=== PATIENT | female | born 1975 | race Caucasian/White ===

== ENCOUNTER 2016-05-08 15:06 | Emergency (ER) | payer MEDICAID ==
[~2016-05-08] VITALS: Ht 162.6 cm; Wt 107.0 kg
[~2016-05-08 15:06] MED LIST: ACET-2080 PO; IBUP-1547 PO
[2016-05-08] MEDS ORDERED: HYDROCODONE/ACETAMINOPHEN 10-325 MG TABLET PO ONE (16:15)
[2016-05-08] MEDS ORDERED: KETOROLAC TROMETHAMINE 60 MG/2 ML VIAL IM ONE (16:15)
[2016-05-08 17:01] LABS: APPEARANCE,URINE CLOUDY (CLEAR); GLUCOSE, URINE (UA) NEGATIVE (NEGATIVE); KETONES,URINE TRACE mg/dL (NEGATIVE); LEUKOCYTE ESTERASE ,URINE MODERATE (NEGATIVE); OCCULT BLOOD,URINE NEGATIVE (NEGATIVE); PROTEIN,URINE NEGATIVE (NEGATIVE)
[2016-05-08 17:04] LABS: ADD UA MICROSCOPIC YES
[2016-05-08] MEDS ORDERED: LIDOCAINE HCL/PF 1% 2 ML VIAL IM ONE (17:30)
[2016-05-08] MEDS ORDERED: CefTRIAXone SODIUM 1 GM/VIAL IM ONE (17:30)
[2016-05-08 17:50] LABS: RBC,URINE None Seen /HPF (0-2); SQUAMOUS EPITHELIAL CELL,UR Many /LPF (None Seen)
[2016-05-08 18:25] VITALS: BP 111/63
== END 2016-05-08 18:38 | disposition home or self-care (01) ==
LOC: EMS 15:08
DX: S33.5XXA Sprain of ligaments of lumbar spine, initial encounter (principal); N39.0 Urinary tract infection, site not specified; E66.01 Morbid (severe) obesity due to excess calories; Z68.41 Body mass index [BMI] 40.0-44.9, adult; X58.XXXA Exposure to other specified factors, initial encounter; Y93.89 Activity, other specified; Y92.89 Other specified places as the place of occurrence of the external cause; Y99.8 Other external cause status
CPT/HCPCS: 81001; 87086; 96372; 99284; J0696; J1885; J3490

== ENCOUNTER 2016-07-03 12:48 | Emergency (ER) | payer MEDICAID ==
[~2016-07-03] VITALS: Ht 157.5 cm; Wt 122.5 kg
[2016-07-03] MEDS ORDERED: ACET-66 PO (13:07)
[2016-07-03 18:44] VITALS: BP 132/75
[2016-07-03] MEDS ORDERED: IBUPROFEN 800 MG TABLET PO ONE (18:45)
== END 2016-07-03 18:52 | disposition home or self-care (01) ==
LOC: EMS 12:49
DX: R51 Headache (principal); E66.01 Morbid (severe) obesity due to excess calories; Z68.42 Body mass index [BMI] 45.0-49.9, adult; D64.9 Anemia, unspecified
CPT/HCPCS: 70450; 81025; 99284

== ENCOUNTER 2017-01-19 14:13 | Emergency (ER) | payer SELFPAY ==
[~2017-01-19] VITALS: Ht 162.6 cm; Wt 122.7 kg
[~2017-01-19 14:13] MED LIST changes: -ACET-2080 PO; +ACET-66 PO; -IBUP-1547 PO; +IBUP-2071 PO
[2017-01-19 15:06] VITALS: BP 126/74
== END 2017-01-19 16:00 | disposition home or self-care (01) ==
LOC: EMS 14:15
DX: N89.8 Other specified noninflammatory disorders of vagina (principal)
CPT/HCPCS: 99283

== ENCOUNTER 2017-05-03 09:36 | Emergency (ER) | payer SELFPAY ==
[~2017-05-03] VITALS: Ht 157.5 cm; Wt 118.2 kg
[2017-05-03 10:18] VITALS: BP 131/77
== END 2017-05-03 11:24 | disposition home or self-care (01) ==
LOC: EMS 09:40
DX: J40 Bronchitis, not specified as acute or chronic (principal); R03.0 Elevated blood-pressure reading, without diagnosis of hypertension; D64.9 Anemia, unspecified
CPT/HCPCS: 71046; 99284

== ENCOUNTER 2017-05-04 08:08 | Emergency (ER) | payer SELFPAY ==
[~2017-05-04] VITALS: Ht 165.1 cm; Wt 118.2 kg
[2017-05-04 08:15] VITALS: BP 150/97
[2017-05-04] MEDS ORDERED: GuaiFENesin/D-METHORPHAN [SUGAR-FREE] 200-20MG/10 ML SYRUP UDCUP PO ONE (09:30)
== END 2017-05-04 09:55 | disposition home or self-care (01) ==
LOC: EMS 08:10
DX: J40 Bronchitis, not specified as acute or chronic (principal); R03.0 Elevated blood-pressure reading, without diagnosis of hypertension
CPT/HCPCS: 99283

== ENCOUNTER 2017-08-10 08:51 | Emergency (ER) | payer SELFPAY ==
[~2017-08-10] VITALS: Ht 162.6 cm; Wt 90.9 kg
[2017-08-10] MEDS ORDERED: METHOCARBAMOL 500 MG TABLET PO ONE (11:30)
[2017-08-10] MEDS ORDERED: KETOROLAC TROMETHAMINE 60 MG/2 ML VIAL IM ONE (11:30)
[2017-08-10 12:29] VITALS: BP 138/84
== END 2017-08-10 12:36 | disposition home or self-care (01) ==
LOC: EMS 08:53
DX: S16.1XXA Strain of muscle, fascia and tendon at neck level, initial encounter (principal); S39.012A Strain of muscle, fascia and tendon of lower back, initial encounter; R03.0 Elevated blood-pressure reading, without diagnosis of hypertension; M79.641 Pain in right hand; V49.40XA Driver injured in collision with unspecified motor vehicles in traffic accident, initial encounter; Y93.89 Activity, other specified; Y92.89 Other specified places as the place of occurrence of the external cause; Y99.8 Other external cause status
CPT/HCPCS: 96372; 99283; J1885

== ENCOUNTER 2017-12-06 09:20 | Emergency (ER) | payer MEDICAID ==
[~2017-12-06] VITALS: Ht 157.5 cm; Wt 118.2 kg
[2017-12-06] MEDS ORDERED: KETOROLAC TROMETHAMINE 30 MG/ML VIAL IM ONE (11:30)
[2017-12-06 13:16] LABS: BASOPHILS % (AUTO) 0.6 % (0.0-2.0); EOSINOPHILS % (AUTO) 2.8 % (1.0-6.0); HEMATOCRIT 35.2 % (36-46); HEMOGLOBIN 11.5 g/dL (12.0-16.0); LYMPHOCYTES # (AUTO) 2.1 K/uL (1.0-4.8); LYMPHOCYTES % (AUTO) 22.6 % (22.0-44.0); MEAN CORPUSCULAR HEMOGLOBIN 24.7 pg (26.0-34.0); MEAN CORPUSCULAR HGB CONC 32.7 G/dL (31.0-37.0); MEAN CORPUSCULAR VOLUME 75 fL (80-100); MONOCYTES # (AUTO) 0.6 K/uL (0.1-1.0); MONOCYTES % (AUTO) 5.8 % (2.0-9.0); NEUTROPHILS # (AUTO) 6.4 K/uL (1.8-7.7); NEUTROPHILS % (AUTO) 68.2 % (40.0-70.0); PLATELET COUNT (AUTO) 300 K/uL (150-450); RED BLOOD CELL COUNT(AUTO) 4.66 MIL/uL (4.00-5.20); RED CELL DISTRIBUTION WIDTH 17.1 % (11.5-14.5)
[2017-12-06 13:31] LABS: ANION GAP 8 mmol/L (8-16); CALCIUM, TOTAL 8.8 mg/dL (8.8-10.5); CARBON DIOXIDE 27 mmol/L (22-29); CHLORIDE 104 mmol/L (98-107); CREATININE 0.58 mg/dL (0.60-1.30); GLOMERULAR FILTR. RATE CALC > 60 mL/min (>60); GLUCOSE,RANDOM 93 mg/dL (70-110); POTASSIUM 3.9 mmol/L (3.5-5.1); SODIUM SERUM 139 mmol/L (136-145); UREA NITROGEN, BLOOD 10 mg/dL (7-18)
[2017-12-06 13:44] LABS: ALANINE AMINOTRANSFERASE 17 U/L (12-78); ALBUMIN 3.3 g/dL (3.4-5.0); ALKALINE PHOSPHATASE 69 U/L (46-116); ASPARTATE AMINOTRANSFERASE 16 U/L (15-37); BILIRUBIN,TOTAL 0.3 mg/dL (0.1-1.0); TOTAL PROTEIN, SERUM 7.4 g/dL (6.4-8.2)
[2017-12-06 15:03] VITALS: BP 128/81
== END 2017-12-06 15:05 | disposition home or self-care (01) ==
LOC: EMS 09:22
DX: M25.512 Pain in left shoulder (principal); R07.89 Other chest pain; E66.01 Morbid (severe) obesity due to excess calories
CPT/HCPCS: 36415; 71045; 80053; 84484; 85025; 93005; 96372; 99285; J1885

== ENCOUNTER 2018-03-28 11:43 | Emergency (ER) | payer MEDICAID ==
[~2018-03-28] VITALS: Ht 165.1 cm; Wt 109.1 kg
[2018-03-28] MEDS ORDERED: DICYCLOMINE HCL 20 MG TABLET PO ONE (14:00)
[2018-03-28 14:27] LABS: BASOPHILS % (AUTO) 0.7 % (0.0-2.0); EOSINOPHILS % (AUTO) 3.9 % (1.0-6.0); HEMATOCRIT 35.1 % (36-46); HEMOGLOBIN 11.4 g/dL (12.0-16.0); LYMPHOCYTES # (AUTO) 1.9 K/uL (1.0-4.8); LYMPHOCYTES % (AUTO) 19.6 % (22.0-44.0); MEAN CORPUSCULAR HEMOGLOBIN 24.6 pg (26.0-34.0); MEAN CORPUSCULAR HGB CONC 32.6 G/dL (31.0-37.0); MEAN CORPUSCULAR VOLUME 75 fL (80-100); MONOCYTES # (AUTO) 0.5 K/uL (0.1-1.0); MONOCYTES % (AUTO) 5.5 % (2.0-9.0); NEUTROPHILS % (AUTO) 70.3 % (40.0-70.0); PLATELET COUNT (AUTO) 296 K/uL (150-450); RED BLOOD CELL COUNT(AUTO) 4.65 MIL/uL (4.00-5.20); RED CELL DISTRIBUTION WIDTH 15.8 % (11.5-14.5)
[2018-03-28 14:38] LABS: ANION GAP 9 mmol/L (8-16); CALCIUM, TOTAL 8.6 mg/dL (8.8-10.5); CARBON DIOXIDE 26 mmol/L (22-29); CHLORIDE 104 mmol/L (98-107); CREATININE 0.53 mg/dL (0.60-1.30); GLOMERULAR FILTR. RATE CALC > 60 mL/min (>60); GLUCOSE,RANDOM 114 mg/dL (70-110); POTASSIUM 3.8 mmol/L (3.5-5.1); SODIUM SERUM 139 mmol/L (136-145); UREA NITROGEN, BLOOD 13 mg/dL (7-18)
[2018-03-28 14:42] LABS: ALANINE AMINOTRANSFERASE 18 U/L (12-78); ALBUMIN 3.3 g/dL (3.4-5.0); ALKALINE PHOSPHATASE 72 U/L (46-116); ASPARTATE AMINOTRANSFERASE 17 U/L (15-37); BILIRUBIN,TOTAL 0.2 mg/dL (0.1-1.0); LIPASE 228 U/L (73-393); TOTAL PROTEIN, SERUM 7.6 g/dL (6.4-8.2)
[2018-03-28] MEDS ORDERED: KETOROLAC TROMETHAMINE 10 MG TABLET PO ONE (14:45)
[2018-03-28 15:35] LABS: HCG,QUANTITATIVE < 1 mIU/mL (0-6)
[2018-03-28 16:34] VITALS: BP 147/81
== END 2018-03-28 17:06 | disposition home or self-care (01) ==
LOC: EMS 11:45
DX: K80.20 Calculus of gallbladder without cholecystitis without obstruction (principal); D25.9 Leiomyoma of uterus, unspecified
CPT/HCPCS: 74176

== ENCOUNTER 2018-12-07 09:28 | Emergency (ER) | payer MEDICAID ==
[~2018-12-07] VITALS: Ht 160 cm; Wt 118.2 kg
[2018-12-07 10:21] LABS: BASOPHILS % (AUTO) 0.6 % (0.0-2.0); EOSINOPHILS % (AUTO) 3.8 % (1.0-6.0); HEMATOCRIT 39.8 % (36-46); HEMOGLOBIN 12.6 g/dL (12.0-16.0); LYMPHOCYTES # (AUTO) 2.1 K/uL (1.0-4.8); LYMPHOCYTES % (AUTO) 21.6 % (22.0-44.0); MEAN CORPUSCULAR HEMOGLOBIN 24.9 pg (26.0-34.0); MEAN CORPUSCULAR HGB CONC 31.8 G/dL (31.0-37.0); MEAN CORPUSCULAR VOLUME 79 fL (80-100); MONOCYTES # (AUTO) 0.5 K/uL (0.1-1.0); MONOCYTES % (AUTO) 5.2 % (2.0-9.0); NEUTROPHILS # (AUTO) 6.8 K/uL (1.8-7.7); NEUTROPHILS % (AUTO) 68.8 % (40.0-70.0); PLATELET COUNT (AUTO) 299 K/uL (150-450); RED BLOOD CELL COUNT(AUTO) 5.06 MIL/uL (4.00-5.20); RED CELL DISTRIBUTION WIDTH 16.3 % (11.5-14.5)
[2018-12-07 10:35] LABS: B-TYPE NATRIURETIC PEPTIDE 12 pg/mL (0-100); D-DIMER 0.7 mg/L FEU (0.00-0.50); PROTHROMBIN TIME 10.2 SEC (9.4-11.6)
[2018-12-07 10:41] LABS: ANION GAP 11 mmol/L (8-16); CALCIUM, TOTAL 9.2 mg/dL (8.8-10.5); CARBON DIOXIDE 22 mmol/L (22-29); CHLORIDE 103 mmol/L (98-107); CREATININE 0.65 mg/dL (0.60-1.30); GLOMERULAR FILTR. RATE CALC > 60 mL/min (>60); GLUCOSE,RANDOM 110 mg/dL (70-110); POTASSIUM 3.9 mmol/L (3.5-5.1); SODIUM SERUM 136 mmol/L (136-145); UREA NITROGEN, BLOOD 10 mg/dL (7-18)
[2018-12-07 10:52] LABS: ALANINE AMINOTRANSFERASE 13 U/L (12-78); ALBUMIN 3.7 g/dL (3.4-5.0); ALKALINE PHOSPHATASE 79 U/L (46-116); ASPARTATE AMINOTRANSFERASE 12 U/L (15-37); BILIRUBIN,TOTAL 0.3 mg/dL (0.1-1.0); CREATINE KINASE, TOTAL ONLY 71 U/L (26-192); HCG,QUANTITATIVE < 1 mIU/mL (0-6); TOTAL PROTEIN, SERUM 8.4 g/dL (6.4-8.2)
[2018-12-07 10:59] LABS: LIPASE 368 U/L (73-393)
[2018-12-07] MEDS ORDERED: IOVERSOL 350 MG/ML 100 ML VIAL ONE (11:39)
[2018-12-07] MEDS ORDERED: SODIUM CHLORIDE 0.9% 100 ML ONE (11:39)
[2018-12-07 11:58] LABS: BILIRUBIN,URINE NEGATIVE (NEGATIVE); GLUCOSE, URINE (UA) NEGATIVE (NEGATIVE); KETONES,URINE NEGATIVE (NEGATIVE); LEUKOCYTE ESTERASE ,URINE MODERATE (NEGATIVE); NITRATE,URINE NEGATIVE (NEGATIVE); PROTEIN,URINE POS 1+ (NEGATIVE)
[2018-12-07 12:24] LABS: APPEARANCE,URINE HAZY (CLEAR); OCCULT BLOOD,URINE MODERATE (NEGATIVE)
[2018-12-07 12:34] LABS: BACTERIA,URINE Few /HPF (None Seen); SQUAMOUS EPITHELIAL CELL,UR Moderate /LPF (None Seen)
[2018-12-07 13:03] VITALS: BP 138/85
== END 2018-12-07 13:06 | disposition home or self-care (01) ==
LOC: EMS 09:28 → EDUNIT# 09:28 → EMS 13:06
DX: R07.89 Other chest pain (principal); K80.20 Calculus of gallbladder without cholecystitis without obstruction; K76.0 Fatty (change of) liver, not elsewhere classified; R16.1 Splenomegaly, not elsewhere classified; E66.01 Morbid (severe) obesity due to excess calories; G89.29 Other chronic pain; Z68.42 Body mass index [BMI] 45.0-49.9, adult
CPT/HCPCS: 36415; 71045; 71275; 80053; 81001; 82550; 83690; 83880; 84484; 84702; 85025; 85379; 85610; 85730; 87086; 93005; 99285; J7050; Q9967

== ENCOUNTER 2019-01-27 09:56 | Inpatient (IN) | payer MEDICAID ==
[~2019-01-27] VITALS: Ht 167.6 cm; Wt 133.6 kg
[2019-01-27] MEDS ORDERED: HYDR-4061 PO (10:05)
[2019-01-27] MEDS ORDERED: RANI150T7 PO (10:05)
[2019-01-27] MEDS ORDERED: OMEP20 PO (10:05)
[2019-01-27 10:43] LABS: APPEARANCE,URINE CLOUDY (CLEAR); BILIRUBIN,URINE NEGATIVE (NEGATIVE); GLUCOSE, URINE (UA) NEGATIVE (NEGATIVE); KETONES,URINE NEGATIVE (NEGATIVE); LEUKOCYTE ESTERASE ,URINE SMALL (NEGATIVE); NITRATE,URINE NEGATIVE (NEGATIVE); OCCULT BLOOD,URINE NEGATIVE (NEGATIVE); PROTEIN,URINE NEGATIVE (NEGATIVE); UROBILINOGEN,URINE 0.2 mg/dL (<=1.0)
[2019-01-27 10:47] LABS: BACTERIA,URINE Moderate /HPF (None Seen); SQUAMOUS EPITHELIAL CELL,UR Many /LPF (None Seen); WBC,URINE None Seen /HPF (0-5)
[2019-01-27] MEDS ORDERED: FAMOTIDINE 10 MG/ML 2 ML VIAL IVP ONE (11:15)
[2019-01-27] MEDS ORDERED: PB/HYOSCY/ATR/SCOP/LIDO/MAALOX 55 ML BOTTLE PO ONE (11:15)
[2019-01-27 11:17] LABS: BASOPHILS % (AUTO) 0.7 % (0.0-2.0); EOSINOPHILS % (AUTO) 3.1 % (1.0-6.0); HEMATOCRIT 31.1 % (36-46); LYMPHOCYTES # (AUTO) 1.6 K/uL (1.0-4.8); LYMPHOCYTES % (AUTO) 18.2 % (22.0-44.0); MEAN CORPUSCULAR HEMOGLOBIN 23.6 pg (26.0-34.0); MEAN CORPUSCULAR VOLUME 74 fL (80-100); MONOCYTES # (AUTO) 0.5 K/uL (0.1-1.0); MONOCYTES % (AUTO) 5.4 % (2.0-9.0); NEUTROPHILS # (AUTO) 6.3 K/uL (1.8-7.7); NEUTROPHILS % (AUTO) 72.6 % (40.0-70.0); PLATELET COUNT (AUTO) 289 K/uL (150-450); RED BLOOD CELL COUNT(AUTO) 4.22 MIL/uL (4.00-5.20); RED CELL DISTRIBUTION WIDTH 15.2 % (11.5-14.5)
[2019-01-27 11:26] LABS: ANION GAP 10 mmol/L (8-16); CALCIUM, TOTAL 8.6 mg/dL (8.8-10.5); CARBON DIOXIDE 25 mmol/L (22-29); CHLORIDE 104 mmol/L (98-107); CREATININE 0.59 mg/dL (0.60-1.30); GLOMERULAR FILTR. RATE CALC > 60 mL/min (>60); GLUCOSE,RANDOM 103 mg/dL (70-110); POTASSIUM 3.7 mmol/L (3.5-5.1); SODIUM SERUM 139 mmol/L (136-145); UREA NITROGEN, BLOOD 7 mg/dL (7-18)
[2019-01-27 11:38] LABS: ALANINE AMINOTRANSFERASE 13 U/L (12-78); ALBUMIN 3.2 g/dL (3.4-5.0); ALKALINE PHOSPHATASE 82 U/L (46-116); ASPARTATE AMINOTRANSFERASE 12 U/L (15-37); BILIRUBIN,TOTAL 0.3 mg/dL (0.1-1.0); HCG,QUANTITATIVE < 1 mIU/mL (0-6); LIPASE 115 U/L (73-393); TOTAL PROTEIN, SERUM 7.8 g/dL (6.4-8.2)
[2019-01-27] MEDS ORDERED: IOVERSOL 350 MG/ML 150 ML VIAL ONE (13:22)
[2019-01-27] MEDS ORDERED: KETOROLAC TROMETHAMINE 30 MG/ML VIAL IVP ONE (15:15)
[2019-01-27] MEDS ORDERED: SODIUM CHLORIDE 0.9% 100 ML ONE (18:50)
[2019-01-27] MEDS ORDERED: IOVERSOL 320 MG/ML 100 ML VIAL ONE (18:50)
[2019-01-27] MEDS ORDERED: IODIXANOL 320 MG/ML 100 ML VIAL ONE (19:07)
[2019-01-27] MEDS ORDERED: HEPARIN SODIUM 25000 UNITS/D5W 250 ML IV PRN (20:39)
[2019-01-27] MEDS ORDERED: HEPARIN SODIUM,PORCINE 5,000 UNITS/ML VIAL IVP ONE ×2 (20:45→21:00)
[2019-01-27] MEDS ORDERED: HEPARIN SODIUM,PORCINE 5,000 UNITS/ML VIAL IVP PRN ×2 (20:45)
[2019-01-27] MEDS ORDERED: ACETAMINOPHEN 325 MG TABLET PO PRN (21:15)
[2019-01-27] MEDS ORDERED: MAGNESIUM HYDROXIDE SUSPENSION 30 ML UDCUP PO PRN (21:15)
[2019-01-27 21:22] LABS: PROTHROMBIN TIME 10.5 SEC (9.4-11.6)
[2019-01-27 23:11] VITALS: BP 123/89
[2019-01-28 03:11] LABS: BASOPHILS % (AUTO) 0.9 % (0.0-2.0); EOSINOPHILS % (AUTO) 3.1 % (1.0-6.0); HEMATOCRIT 28.1 % (36-46); HEMOGLOBIN 9.2 g/dL (12.0-16.0); LYMPHOCYTES # (AUTO) 2.2 K/uL (1.0-4.8); LYMPHOCYTES % (AUTO) 29.3 % (22.0-44.0); MEAN CORPUSCULAR HGB CONC 32.8 G/dL (31.0-37.0); MEAN CORPUSCULAR VOLUME 73 fL (80-100); MONOCYTES # (AUTO) 0.6 K/uL (0.1-1.0); MONOCYTES % (AUTO) 7.5 % (2.0-9.0); NEUTROPHILS # (AUTO) 4.5 K/uL (1.8-7.7); NEUTROPHILS % (AUTO) 59.2 % (40.0-70.0); PLATELET COUNT (AUTO) 248 K/uL (150-450); RED BLOOD CELL COUNT(AUTO) 3.84 MIL/uL (4.00-5.20); RED CELL DISTRIBUTION WIDTH 15.1 % (11.5-14.5)
[2019-01-28 04:20] VITALS: BP 115/43
[2019-01-28] MEDS: MORPHINE SULFATE 2 MG/ML SYRINGE IVP PRN ×2 (08:39→16:51)
[2019-01-28 08:40] VITALS: BP 104/68
[2019-01-28] MEDS: DOCUSATE SODIUM 100 MG CAPSULE PO SCH ×2 (08:42→21:28)
[2019-01-28] MEDS: FAMOTIDINE 20 MG TABLET PO SCH (08:42)
[2019-01-28] MEDS: APIXABAN 5 MG TABLET PO SCH ×2 (10:15→21:28)
[2019-01-28 11:48] VITALS: BP 126/63
[2019-01-28 16:00] VITALS: BP 128/74
[2019-01-28 19:56] VITALS: BP 126/72
[2019-01-28 23:55] VITALS: BP 121/60
[2019-01-29 05:26] VITALS: BP 132/74
[2019-01-29 06:36] LABS: BASOPHILS % (AUTO) 0.8 % (0.0-2.0); EOSINOPHILS % (AUTO) 3.8 % (1.0-6.0); HEMATOCRIT 31.6 % (36-46); LYMPHOCYTES # (AUTO) 1.5 K/uL (1.0-4.8); LYMPHOCYTES % (AUTO) 21.9 % (22.0-44.0); MEAN CORPUSCULAR HEMOGLOBIN 23.5 pg (26.0-34.0); MEAN CORPUSCULAR HGB CONC 31.6 G/dL (31.0-37.0); MEAN CORPUSCULAR VOLUME 74 fL (80-100); MONOCYTES # (AUTO) 0.5 K/uL (0.1-1.0); MONOCYTES % (AUTO) 6.7 % (2.0-9.0); NEUTROPHILS # (AUTO) 4.6 K/uL (1.8-7.7); NEUTROPHILS % (AUTO) 66.8 % (40.0-70.0); PLATELET COUNT (AUTO) 288 K/uL (150-450); RED BLOOD CELL COUNT(AUTO) 4.26 MIL/uL (4.00-5.20); RED CELL DISTRIBUTION WIDTH 15.5 % (11.5-14.5)
[2019-01-29 06:47] LABS: ANION GAP 9 mmol/L (8-16); CALCIUM, TOTAL 8.6 mg/dL (8.8-10.5); CARBON DIOXIDE 25 mmol/L (22-29); CHLORIDE 104 mmol/L (98-107); CREATININE 0.65 mg/dL (0.60-1.30); GLOMERULAR FILTR. RATE CALC > 60 mL/min (>60); GLUCOSE,RANDOM 131 mg/dL (70-110); SODIUM SERUM 138 mmol/L (136-145); UREA NITROGEN, BLOOD 9 mg/dL (7-18)
[2019-01-29 08:02] VITALS: BP 141/75
[2019-01-29] MEDS: DOCUSATE SODIUM 100 MG CAPSULE PO SCH (08:07)
[2019-01-29] MEDS: FAMOTIDINE 20 MG TABLET PO SCH (08:07)
[2019-01-29] MEDS: APIXABAN 5 MG TABLET PO SCH (08:08)
[2019-01-29 12:07] VITALS: BP 128/76
[2019-01-29] MEDS ORDERED: APIX5TAB PO (12:40)
== END 2019-01-29 14:00 | disposition home or self-care (01) | DRG 468 ==
LOC: EMS 09:57 → 5N 21:02
PROVIDERS: ADMIT Internal Medicine; ATTEND Internal Medicine
DX: I82.3 Embolism and thrombosis of renal vein (principal); E66.01 Morbid (severe) obesity due to excess calories; N80.9 Endometriosis, unspecified; Z82.49 Family history of ischemic heart disease and other diseases of the circulatory system; Z87.440 Personal history of urinary (tract) infections; Z83.3 Family history of diabetes mellitus; Z68.42 Body mass index [BMI] 45.0-49.9, adult
CPT/HCPCS: 74177; 87086; J1644; J1885; J2270; J3490; J7050; Q9967

== ENCOUNTER 2019-04-28 20:16 | Emergency (ER) | payer MEDICAID ==
[~2019-04-28 20:16] MED LIST changes: -ACET-66 PO; +APIX5TAB PO; -IBUP-2071 PO; +OMEP20 PO
== END 2019-04-28 20:29 | disposition left against medical advice (07) ==
LOC: EMS 20:19
DX: R07.89 Other chest pain (principal); Z53.21 Procedure and treatment not carried out due to patient leaving prior to being seen by health care provider

== ENCOUNTER 2019-10-02 06:33 | Emergency (ER) | payer MEDICAID ==
[~2019-10-02] VITALS: Ht 157.5 cm; Wt 122.7 kg
[2019-10-02 06:34] VITALS: BP 146/90
== END 2019-10-02 06:55 | disposition home or self-care (01) ==
LOC: EMS 06:33
DX: J34.89 Other specified disorders of nose and nasal sinuses (principal)
CPT/HCPCS: Z7502

== ENCOUNTER 2020-06-29 06:25 | Emergency (ER) | payer MEDICAID ==
[~2020-06-29] VITALS: Ht 162.6 cm; Wt 125.0 kg
[~2020-06-29 06:25] MED LIST changes: -APIX5TAB PO
[2020-06-29 06:32] VITALS: BP 139/101
== END 2020-06-29 07:05 | disposition home or self-care (01) ==
LOC: EMS 06:28
DX: R09.82 Postnasal drip (principal)
CPT/HCPCS: 99282; Z7502

== ENCOUNTER 2021-11-11 08:59 | Emergency (ER) | payer MEDICAID ==
[~2021-11-11] VITALS: Ht 167.6 cm; Wt 120.0 kg
[2021-11-11 11:05] VITALS: BP 129/68
== END 2021-11-11 11:11 | disposition home or self-care (01) ==
LOC: EMS 08:59
DX: R13.10 Dysphagia, unspecified (principal); E66.01 Morbid (severe) obesity due to excess calories; Z87.19 Personal history of other diseases of the digestive system
CPT/HCPCS: 70360; 99283

== ENCOUNTER 2022-01-08 11:22 | Emergency (ER) | payer MEDICAID ==
[~2022-01-08] VITALS: Ht 162.6 cm; Wt 127.3 kg
[2022-01-08] MEDS ORDERED: BENZ-70 PO (12:41)
[2022-01-08] MEDS ORDERED: GUAI-487 PO (12:41)
[2022-01-08] MEDS ORDERED: PROM118S5 PO ×2 (12:41→16:49)
[2022-01-08 12:59] VITALS: BP 138/85
[2022-01-08] MEDS ORDERED: GUAIF600 PO (16:49)
== END 2022-01-08 13:00 | disposition home or self-care (01) ==
LOC: EMS 11:22
DX: J20.9 Acute bronchitis, unspecified (principal); E66.01 Morbid (severe) obesity due to excess calories; G89.29 Other chronic pain; Z87.738 Personal history of other specified (corrected) congenital malformations of digestive system
CPT/HCPCS: 99283; Z7502

== ENCOUNTER 2022-05-14 10:36 | Emergency (ER) | payer MEDICAID ==
[~2022-05-14] VITALS: Ht 160 cm; Wt 118.2 kg
[~2022-05-14 10:36] MED LIST changes: +GUAIF600 PO; +PROM118S5 PO
[2022-05-14 12:18] LABS: BASOPHILS % (AUTO) 0.7 % (0.0-2.0); EOSINOPHILS % (AUTO) 2.3 % (1.0-6.0); HEMATOCRIT 40.3 % (36-46); HEMOGLOBIN 13.4 g/dL (12.0-16.0); LYMPHOCYTES # (AUTO) 1.8 K/uL (1.0-4.8); LYMPHOCYTES % (AUTO) 19.5 % (22.0-44.0); MEAN CORPUSCULAR HEMOGLOBIN 27.9 pg (26.0-34.0); MEAN CORPUSCULAR HGB CONC 33.3 G/dL (31.0-37.0); MEAN CORPUSCULAR VOLUME 84 fL (80-100); MONOCYTES # (AUTO) 0.5 K/uL (0.1-1.0); NEUTROPHILS # (AUTO) 6.6 K/uL (1.8-7.7); NEUTROPHILS % (AUTO) 72.5 % (40.0-70.0); PLATELET COUNT (AUTO) 243 K/uL (150-450); RED BLOOD CELL COUNT(AUTO) 4.82 MIL/uL (4.00-5.20); RED CELL DISTRIBUTION WIDTH 14.1 % (11.5-14.5)
[2022-05-14 12:25] LABS: ANION GAP 8 mmol/L (8-16); CALCIUM, TOTAL 8.7 mg/dL (8.8-10.5); CARBON DIOXIDE 28 mmol/L (22-29); CHLORIDE 104 mmol/L (98-107); CREATININE 0.57 mg/dL (0.60-1.30); GLOMERULAR FILTR. RATE CALC > 60 mL/min (>60); GLUCOSE,RANDOM 107 mg/dL (70-110); POTASSIUM 4.5 mmol/L (3.5-5.1); SODIUM SERUM 140 mmol/L (136-145); UREA NITROGEN, BLOOD 9 mg/dL (7-18)
[2022-05-14 12:26] LABS: APPEARANCE,URINE CLEAR (CLEAR); BILIRUBIN,URINE NEGATIVE (NEGATIVE); GLUCOSE, URINE (UA) NEGATIVE (NEGATIVE); KETONES,URINE NEGATIVE (NEGATIVE); LEUKOCYTE ESTERASE ,URINE TRACE (NEGATIVE); NITRATE,URINE NEGATIVE (NEGATIVE); OCCULT BLOOD,URINE NEGATIVE (NEGATIVE); PROTEIN,URINE NEGATIVE (NEGATIVE); SPECIFIC GRAVITIY, URINE 1.008 (1.003-1.030); UROBILINOGEN,URINE <=1.0 mg/dL (<=1.0)
[2022-05-14 12:36] LABS: ALANINE AMINOTRANSFERASE 27 U/L (12-78); ALBUMIN 3.5 g/dL (3.4-5.0); ALKALINE PHOSPHATASE 74 U/L (46-116); ASPARTATE AMINOTRANSFERASE 22 U/L (15-37); BILIRUBIN,TOTAL 0.3 mg/dL (0.1-1.0); HCG,QUANTITATIVE < 1 mIU/mL (0-6); LIPASE 104 U/L (73-393)
[2022-05-14 12:52] LABS: RBC,URINE None Seen /HPF (0-2); WBC,URINE 0-2 /HPF (0-5)
[2022-05-14 12:53] LABS: BACTERIA,URINE Few /HPF (None Seen); SQUAMOUS EPITHELIAL CELL,UR Few /LPF (None Seen)
[2022-05-14] MEDS ORDERED: POLY238P PO (14:19)
[2022-05-14] MEDS ORDERED: OMEP20 PO (14:19)
[2022-05-14] MEDS ORDERED: ACET-66 PO (14:19)
[2022-05-14 14:41] VITALS: BP 139/88
== END 2022-05-14 15:36 | disposition home or self-care (01) ==
LOC: EMS 10:44
DX: R10.84 Generalized abdominal pain (principal); K59.00 Constipation, unspecified; G89.29 Other chronic pain; Z98.890 Other specified postprocedural states
CPT/HCPCS: 76700; 76856; 80053; 81001; 83690; 84702; 85025; 99284

== ENCOUNTER 2024-01-21 10:10 | Emergency (ER) | payer MEDICAID, OTHER ==
[~2024-01-21] VITALS: Ht 162.6 cm; Wt 127.0 kg
[~2024-01-21 10:10] MED LIST changes: +ACET-66 PO; -GUAIF600 PO; +POLY238P PO; -PROM118S5 PO
[2024-01-21 10:21] VITALS: TEMP 98.4
[2024-01-21] MEDS ORDERED: IBUP-1554 PO (14:38)
[2024-01-21] MEDS ORDERED: HYDR-4062 PO (14:38)
[2024-01-21 15:18] VITALS: BP 150/84; PULSE 72; RESP 16; O2SAT 98
== END 2024-01-21 15:18 | disposition home or self-care (01) ==
LOC: EMS 10:10
DX: S33.5XXA Sprain of ligaments of lumbar spine, initial encounter (principal); K21.9 Gastro-esophageal reflux disease without esophagitis; E66.01 Morbid (severe) obesity due to excess calories; Z87.19 Personal history of other diseases of the digestive system; Z79.899 Other long term (current) drug therapy; V49.40XA Driver injured in collision with unspecified motor vehicles in traffic accident, initial encounter; Y93.89 Activity, other specified; Y92.410 Unspecified street and highway as the place of occurrence of the external cause; Y99.8 Other external cause status
CPT/HCPCS: 72040; 72070; 72100; 99284; Z7502

== ENCOUNTER 2024-07-24 09:07 | Emergency (ER) | payer OTHER ==
[~2024-07-24] VITALS: Ht 165.1 cm; Wt 131.0 kg
[~2024-07-24 09:07] MED LIST changes: +HYDR-4062 PO; +IBUP-1554 PO; +OMEP-148 PO; -OMEP20 PO
[2024-07-24] MEDS: PB/HYOSCY/ATR/SCOP/LIDO/MAALOX 55 ML BOTTLE PO ONE (11:58)
[2024-07-24 12:15] LABS: COVID AG,FIA SOURCE NASAL SWAB
[2024-07-24 12:42] LABS: SARS-COV2 (COVID) ANTIGEN,FIA Negative (Negative)
[2024-07-24 15:26] VITALS: TEMP 97.5
[2024-07-24 15:52] VITALS: BP 144/84; PULSE 81; RESP 14; O2SAT 99
== END 2024-07-24 15:56 | disposition home or self-care (01) ==
LOC: EMS 09:26
DX: K21.9 Gastro-esophageal reflux disease without esophagitis (principal); R13.10 Dysphagia, unspecified; Z79.899 Other long term (current) drug therapy; Z79.1 Long term (current) use of non-steroidal anti-inflammatories (NSAID); Z20.822 Contact with and (suspected) exposure to COVID-19
CPT/HCPCS: 70360; 87430; 99284; Z7502; Z7610